=== PATIENT | male | born 1990 | race Caucasian/White ===

== ENCOUNTER 2019-03-30 08:00 | Emergency (ER) | payer SELFPAY ==
[~2019-03-30] VITALS: Ht 175.3 cm; Wt 74.9 kg
[2019-03-30 08:00] VITALS: BP 127/96
[2019-03-30] MEDS ORDERED: LIDOCAINE MPF 1% 10 MG/ML VIAL INJ ONE (09:00)
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
--- NOTE | 2019-03-30 09:20 | NUR ---
ERMD IS AT BEDSIDE AND IMPLEMETING PROCEDURE.
--- NOTE | 2019-03-30 09:30 | NUR ---
[place] [employer] ARE AT BEDSIDE AND TALKING TO PT.
[2019-03-30 09:36] VITALS: BP 122/89
--- NOTE | 2019-03-30 09:36 | NUR ---
Patient discharged with v/s stable. Written and verbal after care instructions given and explained. Patient verbalized understanding. Ambulatory with steady gait. All questions addressed prior to discharge. Advised to follow up with PMD.
== END 2019-03-30 09:36 | disposition home or self-care (01) ==
LOC: MED 08:00
DX: S81.012A Laceration without foreign body, left knee, initial encounter (principal); X99.1XXA Assault by knife, initial encounter; Y93.89 Activity, other specified; Y92.89 Other specified places as the place of occurrence of the external cause; Y99.8 Other external cause status
CPT/HCPCS: 12002; 99283; J2001